=== PATIENT | male | born 1990 | race Hispanic/Latino ===

== ENCOUNTER 2016-11-03 17:36 | Emergency (ER) | payer MEDICAID, OTHER ==
[~2016-11-03] VITALS: Ht 185.4 cm; Wt 77.1 kg
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
[2016-11-03] MEDS ORDERED: Bacitracin Oint UD TOPIC ONE (18:15)
[2016-11-03 18:42] VITALS: BP 130/86
[2016-11-03 18:45] VITALS: BP 130/86
== END 2016-11-03 18:45 | disposition home or self-care (01) ==
LOC: EDBD 17:36 → EMR 18:00
DX: M79.5 Residual foreign body in soft tissue (principal)